=== PATIENT | female | born 1935 | race Caucasian/White ===

== ENCOUNTER 2018-12-21 17:56 | Observation (INO) | payer MEDICARE ==
[~2018-12-21] VITALS: Ht 149.9 cm; Wt 51.3 kg
--- OUTSIDE RECORDS SUMMARY | 2018-12-21 17:58 | XMS REPORT | Clinical Summary ---
Author Author SARI [facility] Address Unknown Phone Unavailable Care Team Providers Care Quality Associate Name Role Phone Aubree Parkinson MD PCP Allergies Comments Active Allergy Reactions Severity Noted Date Penicillins Rash Low 12/12/2018 Medications End Date Status Medication Sig Dispensed Refills Start Date Active acetaminophen (TYLENOL) Take 500 mg 0 500 MG tablet by mouth every 6 (six) hours as needed for Pain. Active donepezil (ARICEPT) 5 MG Take 5 mg by 0 tablet mouth nightly. Active sertraline (ZOLOFT) 50 MG Take 50 mg by 0 tablet mouth daily. Active simvastatin (ZOCOR) 20 MG Take 20 mg by 0 tablet mouth nightly. Active cranberry fruit extract by 0 (CRANBERRY EXTRACT, BULK, Miscellaneous MISC) route. Active ergocalciferol, vitamin Take by 0 D2, (VITAMIN D2 ORAL) mouth. Active b complex vitamins tablet Take 1 tablet 0 by mouth daily. 12/30/2018 Active acetaminophen-codeine Take 1 tablet 30 tablet 0 (TYLENOL #3) 300-30 mg by mouth 9 per tablet every 4 (four) hours as needed for up to 10 days. Max Daily Amount: 6 tablets Active Problems Problem Noted Date Biliary colic 12/20/2018 Encounters Care Team Description Date Type Specialty Olivia Dove MD 12/20/2018 Anesthesia Event Saman Chang MD LAPAROSCOPY,CHOLECYSTECTOMY 12/20/2018 Surgery Saman Chang MD 12/20/2018 Hospital Encounter Resource, Oqmt Preadmit Phone 12/13/2018 Hospital Pre-Admission Testing Encounter after 12/20/2017 Social History Date Tobacco Use Types Packs/Day Years Used Never Smoker Smokeless Tobacco: Never Used Alcohol Use Drinks/Week oz/Week Comments No Alcohol Habits Answer Date Recorded How often do you have a drink containing alcohol? Never 12/13/2018 How many drinks containing alcohol do you have on Not asked a typical day when you are drinking? How often do you have six or more drinks on one Not asked occasion? Sex Assigned at Date Recorded Not on file Industry Job Start Date Occupation Not on file Not on file Not on file Travel End Travel History Travel Start No recent travel history available. Last Filed Vital Signs Time Taken Vital Sign Reading 12/20/2018 10:40 AM CDT Blood Pressure 140/66 12/20/2018 10:40 AM CDT Pulse 96 12/20/2018 10:40 AM CDT Temperature 36.7 C (98 F) 12/20/2018 10:40 AM CDT Respiratory Rate 18 12/20/2018 10:40 AM CDT Oxygen Saturation 97% - Inhaled Oxygen - Concentration 12/20/2018 7:09 AM CDT Weight 50.1 kg (110 lb 6.4 oz) 12/20/2018 7:09 AM CDT Height 149.9 cm (4' 11") 12/20/2018 7:09 AM CDT Body Mass Index 22.3 Plan of Treatment Not on file Procedures Comments Procedure Name Priority Date/Time Associated Diagnosis LAPAROSCOPY,CHOLECYSTECTO 12/20/2018 Gall stones MY 7:30 AM CDT after 12/20/2017 Results Not on fileafter 12/20/2017 Insurance Payer Benefit Subscriber ID Type Phone Address Plan / Group [facility] xxxxxxxxxxx MEDICARE ADV Guarantor Name Account Relation to Date of Phone Billing Address Type Patient Nicole Palacio Personal/F Self 1935 [facility] (Home) [place] [address] Advance Directives For more information, please contact: [facility] [address] [place] [address] Date Inactivated Comments Code Status Date Activated 12/20/2018 1:21 PM Full Code 12/20/2018 6:28 AM This code status was determined by: Patient
[2018-12-21] MEDS ORDERED: SODIUM CHLORIDE 0.9% 1000ML 1,000 ML IV STA (18:05)
[2018-12-21] MEDS ORDERED: MORPHINE SULFATE 2 MG/ML SYR 1ML IV STA (18:05)
[2018-12-21] MEDS ORDERED: ONDANSETRON HCL INJ 2MG/ML 2ML 2 MG/ML VIAL IV ONE (18:15)
[2018-12-21] MEDS ORDERED: MORPHINE SULFATE INJ 4 MG/ML INJ 1ML IV ONE (18:30)
[2018-12-21 18:38] LABS: BASOPHILS % 0.1 % (0.0-1.0); HEMATOCRIT 37.1 % (34.2-44.1); HEMOGLOBIN 12.4 g/dL (12.0-16.0); LYMPHOCYTES # (AUTO) 0.5 (1.0-3.2); LYMPHOCYTES % 3.5 % (18.0-39.1); MEAN CORPUSCULAR HEMOGLOBIN 31.6 pg (28-32); MEAN CORPUSCULAR HGB CONC 33.4 g/dL (31-35); MEAN CORPUSCULAR VOLUME 94.6 fL (81-99); MONOCYTES # (AUTO) 0.8 (0.2-0.8); MONOCYTES % 5.4 % (4.4-11.3); NEUTROPHILS # (AUTO) 13.5 (2.1-6.9); NEUTROPHILS % 90.3 % (38.7-80.0); PLATELET COUNT 333 x10e3/uL (140-360); RED BLOOD COUNT 3.92 x10e6/uL (3.6-5.1); RED CELL DISTRIBUTION WIDTH 14.8 % (11.7-14.4)
[2018-12-21 18:56] LABS: ALANINE AMINOTRANSFERASE 25 IU/L (0-55); ALBUMIN 2.9 g/dL (3.5-5.0); ALBUMIN/GLOBULIN RATIO 0.7 (0.8-2.0); ALKALINE PHOSPHATASE 133 IU/L (40-150); AMYLASE 90 U/L (25-125); ANION GAP 10.8 mmol/L (8-16); BLOOD UREA NITROGEN 12 mg/dL (7-26); BUN/CREATININE RATIO 16 (6-25); CALCIUM 11.4 mg/dL (8.4-10.2); CARBON DIOXIDE 28 mmol/L (22-29); CHLORIDE 101 mmol/L (98-107); CREATINE KINASE 484 IU/L (29-168); CREATININE, SERUM 0.73 mg/dL (0.57-1.11); EST GLOMERULAR FILTRATION RATE > 60 ML/MIN (60-); GLUCOSE 121 mg/dL (74-118); LIPASE 35 U/L (8-78); SODIUM 137 mmol/L (136-145)
[2018-12-21 18:57] LABS: POTASSIUM 2.8 mmol/L (3.5-5.1)
[2018-12-21] MEDS ORDERED: KCL 20MEQ/.9 SOD CHL 1,000 ML IV ONE ×2 (19:10→19:15)
[2018-12-21] MEDS ORDERED: SIMVASTATIN20 MG PO (19:21)
[2018-12-21] MEDS ORDERED: TYLENOL WITH C1 EACH PO (19:21)
[2018-12-21] MEDS ORDERED: ARICEPT5 MG PO (19:22)
[2018-12-21] MEDS ORDERED: ZOLOFT25 MG PO (19:22)
[2018-12-21] MEDS ORDERED: BENZONATATE100 MG PO (19:23)
[2018-12-21] MEDS ORDERED: ZOFRAN4 MG PO (19:23)
[2018-12-21] MEDS ORDERED: NORCO 5-325 TA1 EACH PO (19:24)
--- NOTE | 2018-12-21 19:26 | Diagnostic Imaging Report ---
EXAMINATION: CHEST 2 VIEWS INDICATION: Shortness of breath. ^SOB ^[id number] ^1840 ^Y COMPARISON: None FINDINGS: TUBES and LINES: None. LUNGS: Chronic appearing change in the lungs. Perihilar peribronchial hazy opacity could be due to bronchitis. PLEURA: Blunting of the left costophrenic angle could be due to pleural thickening. No pleural effusion or pneumothorax. HEART AND MEDIASTINUM: Hiatal hernia The cardiomediastinal silhouette is otherwise unremarkable. BONES AND SOFT TISSUES: Age indeterminate compression deformities involving several of the lower thoracic vertebral bodies. Soft tissues are unremarkable. UPPER ABDOMEN: No free air under the diaphragm. IMPRESSION: Chronic appearing change in the lungs. Perihilar peribronchial hazy opacity could be due to bronchitis Signed by: Dr. Han Prieto M.D. on 12/21/2018 7:23 PM
--- NOTE | 2018-12-21 19:30 | NUR ---
WOUND CLEANSED WITH NS, ADAPTIC, TELFA, CONFORM, COBAN DRESSING APPLIED, TOLERATED WELL
[2018-12-21 19:36] LABS: BILIRUBIN,URINE NEGATIVE (NEGATIVE); CLARITY,URINE CLOUDY (CLEAR); COLOR,URINE YELLOW (YELLOW); KETONES,URINE NEGATIVE (NEGATIVE); LEUKOCYTE ESTERASE ,URINE NEGATIVE (NEGATIVE); NITRITE,URINE NEGATIVE (NEGATIVE); PROTEIN,URINE DIPSTICK TRACE (NEGATIVE); RBC,URINE 0-5 /HPF (0-5); URINE UROBILINOGEN 0.2 mg/dL (0.2 - 1)
[2018-12-21 19:37] LABS: AMORPHOUS SEDIMENT,URINE MANY (FEW); BACTERIA,URINE MODERATE /HPF; EPITHELIAL CELLS,URINE MODERATE /LPF; MUCUS,URINE FEW (RARE)
[2018-12-21] MEDS ORDERED: HYDRALAZINE HCL 20 MG/ML VIAL IV PRN (19:45)
[2018-12-21] MEDS ORDERED: CEFTRIAXONE SOD 1 GM/NS 50 ML 50 ML IV SCH (19:45)
[2018-12-21] MEDS ORDERED: ALBUTEROL/IPRATROPIUM 3 ML NEB NEB PRN (19:45)
[2018-12-21] MEDS ORDERED: ONDANSETRON HCL INJ 2MG/ML 2ML 2 MG/ML VIAL IV PRN (19:45)
[2018-12-21] MEDS ORDERED: POTASSIUM CHLORIDE 10MEQ/100ML 100 ML IV ONE (20:00)
--- OUTSIDE RECORDS SUMMARY | 2018-12-21 20:03 | XMS REPORT ---
Author Author [facility] Address Unknown Phone Unavailable Care Team Providers Care Traffic Clerk Name Role Phone Romeo ARREOLA Unavailable Unavailable THANIA WADDELL Unavailable Unavailable Problems This patient has no known problems. Allergies, Adverse Reactions, Alerts This patient has no known allergies or adverse reactions. Medications This patient has no known medications. Results Test Description Test Time Test Comments Text Results Atomic Results Result Comments CHEST 2 VIEWS 2018-12-21 19:21:00 [place] [address] Patient Name: LOVE MELGAR MR #: [id number] : 1935 Age/Sex: 83/F Req #: [id number] Adm Physician: Ordered by: ADAL ARREOLA MD Report #: [id number] Location: ER Room/Bed: Procedure: [id number] DX/CHEST 2 VIEWS Exam Date: 12/21/18 Exam Time: 1839 REPORT STATUS: Signed EXAMINATION: CHEST 2 VIEWS INDICATION: Shortne ss of breath. SOB 20181221 1840 Y COMPARISON: None FINDINGS: TUBES and LINES: None. LUNGS: Chronic appearing change in the lungs. Perihilar peribronchial hazy opacity could be due to bronchitis. PLEURA: Blunting of the left costophrenic angle could be due to pleural thickening. No pleural effusion or pneumothorax. HEART AND MEDIASTINUM: Hiatal hernia The cardiomediastinal silhouette is otherwise unremarkable. BONES AND SOFT TISSUES: Age indeterminate compression deformities involving several of the lower thoracic vertebral bodies. Soft tissues are unremarkable. UPPER ABDOMEN: No free air under the diaphragm. IMPRESSION: Chronic appearing change in the lungs. Perihilar peribronchial hazy opacity could be due to bronchitis Signed by: Dr. Han Prieto M.D. on 12/21/2018 7:23 PM Dictated By: HAN PRIETO MD, MD 22 Transcribed By: AMY on 12/21/181922 COPY TO: ADAL ARREOLA MD TISSUE EXAM 2018-12-21 18:28:00 Surgical Pathology Report Case: [id number] Authorizing Provider: Saman Waddell MD Collected: 12/20/2018 0816 Ord ering Location: [facility] PERI[facility] Received: 12/20/2018 1201 SERVICES Pathologist: Renetta Crabtree MD Specimen: Gallbladder GALLBLADDER, LAPAROSCOPIC CHOLECYSTECTOMY: - CHRONIC CHOLECYSTITIS WITH LYMPHOID FOLLICLES - CHOLELITHIASIS - CYSTIC DUCT MARGIN IS UNREMARKABLE - NEGATIVE FOR DYSPLASIA OR MALIGNANCY Signing Pathologist Direct Phone Line: [phone] signed by Renetta Crabtree MD on 12/21/2018 at 6:28 [id number] Gallbladder The specimen is received in formalin-filled container and labeled with the patient's information and labeled "gallbladder" consists of an intact gallbladder measuring 6 x 3 cm with the gallbladder wall thickness of 0.3 cm. The gallbladder lumen is filled with red thick bile and a single green smooth stone measuring up to 1 cm. The mucosa is acuña-red and velvety with no abnormality. Section code: A1, margin en face; A2, gallbladder wall. CG/pl Performed.
--- OUTSIDE RECORDS SUMMARY | 2018-12-21 20:03 | XMS REPORT | Clinical Summary ---
Author Author SARI [facility] Address Unknown Phone Unavailable Care Team Providers Care Mileage Clerk Name Role Phone Aubree Parkinson MD PCP [...] Event Saman Chang MD LAPAROSCOPY,CHOLECYSTECTOMY 12/20/2018 Surgery Smaan Chang MD 12/20/2018 Hospital Encounter Resource, Oqmt [...] Comments Procedure Name Priority Date/Time Associated Diagnosis TISSUE EXAM AP Routine 12/20/2018 8:16 AM CDT LAPAROSCOPY,CHOLECYSTECTO 12/20/2018 Gall stones MY 7:30 AM CDT after 12/20/2017 Results * Tissue Exam (12/20/2018 8:16 AM CDT) Case Report Surgical Pathology [facility] Report [facility] Case: [id number] Authorizing Provider:Saman Chang MD Collected: 12/20/2018 0816 Ordering Location: [facility] PERI[facility] Received: 12/20/2018 1201 SERVICES Pathologist: Renetta Cratbree MD Specimen:Gallbladder DIAGNOSIS GALLBLADDER, LAPAROSCOPIC [facility] CHOLECYSTECTOMY: [facility] - CHRONIC CHOLECYSTITIS WITH LYMPHOID FOLLICLES - CHOLELITHIASIS - CYSTIC DUCT MARGIN IS UNREMARKABLE - NEGATIVE FOR DYSPLASIA OR MALIGNANCY Signing Pathologist Direct Phone Line: [phone] CPT Code(s) 379[address] [facility] CLINICAL HISTORY Gallstones [facility] SPECIMEN SOURCE Gallbladder [facility] GROSS DESCRIPTION The specimen is received in [facility] formalin-filled container and [facility] labeled with the patient's information and labeled [...] margin en face; A2, gallbladder wall. CG/pl MICROSCOPIC DESCRIPTION Performed. [facility] Specimen Tissue - Gallbladder Performing Organization Address City/State/Zipcode Phone Number [facility] [address] [place] [address] [facility] after 12/20/2017 Insurance Payer Benefit Subscriber ID Type Phone Address Plan / Group [facility] xxxxxxxxxxx MEDICARE ADV Advance Directives For more information, please contact: [address] [address] Date Inactivated Comments Code Status Date Activated 12/20/2018 1:21 PM Full Code 12/20/2018 6:28 AM This code status was determined by: Patient
[2018-12-21] MEDS: POTASSIUM CHLORIDE 10MEQ/100ML 100 ML IV SCH ×2 (21:49→23:46)
[2018-12-21] MEDS ORDERED: POTASSIUM CHLORIDE 10MEQ/100ML 100 ML IV SCH (22:00)
[2018-12-21] MEDS ORDERED: KCL 20MEQ/.9 SOD CHL 1,000 ML IV SCH (22:00)
[2018-12-21] MEDS ORDERED: POTASSIUM CHLORIDE 10MEQ/100ML 100 ML ONE (23:05)
[2018-12-21 23:16] VITALS: BP_SYST 150; BP_SYST 152; BP_DIAS 70; BP_DIAS 71
--- NOTE | 2018-12-21 23:16 | NUR ---
Pt received from ER. Pt A&O and in no apparent distress. Pt family at bedside. Pt on tele. Pt has purewick in place. All safety measures ensured, bed alarm on, and pt call [place] near. Daughter in law to stay overnight.
[2018-12-22] VITALS (7 sets, daily range): BP systolic 109–150; BP diastolic 57–70
[2018-12-22 05:50] LABS: BASOPHILS % 0.1 % (0.0-1.0); HEMATOCRIT 31.2 % (34.2-44.1); HEMOGLOBIN 10.1 g/dL (12.0-16.0); LYMPHOCYTES # (AUTO) 0.6 (1.0-3.2); LYMPHOCYTES % 5.3 % (18.0-39.1); MEAN CORPUSCULAR HEMOGLOBIN 31.1 pg (28-32); MEAN CORPUSCULAR HGB CONC 32.4 g/dL (31-35); MONOCYTES # (AUTO) 0.8 (0.2-0.8); MONOCYTES % 7.3 % (4.4-11.3); NEUTROPHILS # (AUTO) 9.5 (2.1-6.9); NEUTROPHILS % 86.7 % (38.7-80.0); PLATELET COUNT 269 x10e3/uL (140-360); RED BLOOD COUNT 3.25 x10e6/uL (3.6-5.1)
[2018-12-22 06:02] LABS: ANION GAP 9.2 mmol/L (8-16); BLOOD UREA NITROGEN 13 mg/dL (7-26); BUN/CREATININE RATIO 22 (6-25); CALCIUM 9.9 mg/dL (8.4-10.2); CARBON DIOXIDE 25 mmol/L (22-29); CHLORIDE 109 mmol/L (98-107); EST GLOMERULAR FILTRATION RATE > 60 ML/MIN (60-); GLUCOSE 100 mg/dL (74-118); POTASSIUM 3.2 mmol/L (3.5-5.1); SODIUM 140 mmol/L (136-145)
--- NOTE | 2018-12-22 07:32 | NUR ---
report given and walking rounds complete
[2018-12-22 11:54] LABS: HYPOCHROMASIA SLIGHT; LYMPHOCYTES % (MANUAL) 5 % (19-48); METAMYELOCYTES % (MANUAL) 1 % (0-0); MONOCYTES % (MANUAL) 5 % (3.4-9.0); NEUTROPHILS % (MANUAL) 89 % (40-74); PLATELET ESTIMATE ADEQUATE
[2018-12-22 11:55] LABS: ANISOCYTOSIS SLIGHT; PLATELET MORPHOLOGY COMMENT NORMAL; POIKILOCYTOSIS SLIGHT; RBC MORPHOLOGY COMMENT NORMAL
[2018-12-22] MEDS ORDERED: ALBUTEROL/IPRATROPIUM 3 ML NEB NEB SCH (15:45)
[2018-12-22] MEDS ORDERED: POTASSIUM CHLORIDE 20 MEQ TAB CR PO ONE (16:00)
[2018-12-22] MEDS ORDERED: ONDANSETRON HCL 4 MG ORAL DISINTEGRATING TAB PO PRN (16:00)
[2018-12-22] MEDS: FAMOTIDINE 20 MG TAB PO SCH (17:22)
--- NOTE | 2018-12-22 17:24 | Diagnostic Imaging Report ---
EXAM: CT Chest WITHOUT contrast 12/22/2018 3:40 PM INDICATION: Cough. Vomiting. COPD. COMPARISON: 12/21/2018 TECHNIQUE: Chest was scanned utilizing a multidetector helical scanner from the lung apex through the level of the adrenal glands without administration of IV contrast. Absence of intravenous contrast decreases sensitivity for detection of lymphadenopathy and vascular pathology. Coronal and sagittal reformations were obtained. Routine protocol was performed. IV CONTRAST: None RADIATION DOSE: Total DLP: 366.87 mGy*cm Estimated effective dose: (DLP x 0.014 x size factor) mSv COMPLICATIONS: None FINDINGS: LINES/ TUBES: None. LUNGS AND AIRWAYS: Chronic appearing changes in the lungs with what appear to be regions of scarring/atelectasis most pronounced in the left upper lung. Scattered ill-defined nodular densities in the posterior left lower lobe best seen on axial image 45 could be due to developing pneumonia. PLEURA: Moderate sized pleural effusion with associated atelectasis at the lung bases. HEART AND MEDIASTINUM: The thyroid gland is normal. Prominent mediastinal lymph nodes could be reactive. The heart is normal in size.. There is no pericardial effusion. Scattered atherosclerotic calcification in the coronary arteries, aorta and branch vessels. Small amount of debris/saliva in the trachea. Moderate size hiatal hernia with suspected marked because of thickening in the esophagus. UPPER ABDOMEN: Limited non-contrast views of the upper abdomen show no abnormality within the visualized liver, spleen, pancreas, or kidneys. The adrenal glands are normal. BONES: Scattered degenerative changes. Age indeterminate compression deformity involving several of the lower thoracic vertebral bodies. MRI may be of benefit. SOFT TISSUES: Unremarkable. IMPRESSION: Moderate sized pleural effusion with associated atelectasis at the lung bases Scattered ill-defined nodular densities in the posterior left lower lobe could be due to developing pneumonia. Chronic appearing changes in the lungs with what appear to be regions of scarring/atelectasis most pronounced in the left upper lung. Moderate size hiatal hernia with suspected marked because of thickening in the esophagus. Endoscopy may be of benefit. Age indeterminate compression deformity involving several of the lower thoracic vertebral bodies. MRI may be of benefit. Signed by: Dr. Han Prieto M.D. on 12/22/2018 5:21 PM
[2018-12-22] MEDS: HYDROCODONE/APAP 5MG-325MG TAB PO PRN (18:14)
--- NOTE | 2018-12-22 18:56 | NUR ---
Got report from previous nurse. Call light within reach. patient in bed. No pain or distress noted. Family at bedside
[2018-12-22] MEDS: DONEPEZIL HCL 5 MG TAB PO SCH (22:00)
[2018-12-22] MEDS: SIMVASTATIN 20 MG TAB PO SCH (22:00)
[2018-12-23] VITALS (8 sets, daily range): BP systolic 132–164; BP diastolic 66–75
--- NOTE | 2018-12-23 07:13 | NUR ---
Gave report to oncoming nurse. Call light within reach. Patient in bed. Family at bedside
[2018-12-23] MEDS ORDERED: SERTRALINE HCL 25 MG PO SCH (09:00)
[2018-12-23] MEDS: HYDROCODONE/APAP 5MG-325MG TAB PO PRN ×3 (10:43→23:21)
--- NOTE | 2018-12-23 11:49 | NUR ---
Spoke to Dr. Tierney regarding pt status. She is day 2 observation. Does not meet inpatient status. He believes she has pneumonia, and state will treat w/ oral antibiotic. Stated she is too weak to leave today, and he will re-evaluate for tomorrow.
[2018-12-23] MEDS: FAMOTIDINE 20 MG TAB PO SCH ×2 (11:56→17:29)
[2018-12-23] MEDS: SERTRALINE HCL 50 MG TAB PO SCH (11:56)
[2018-12-23] MEDS: LEVOFLOXACIN 500 MG TAB PO SCH ×2 (12:00→13:14)
--- NOTE | 2018-12-23 14:15 | NUR ---
PATIENT COMPLAINING OF SEVERE NAUSEA, SHE STATED THAT THE LEVAQUIN MADE HER SICK, CALLED DR. MOLINA, LEFT MESSAGE FOR MORE NAUSEA MEDICATION.
[2018-12-23] MEDS: ALBUTEROL/IPRATROPIUM 3 ML NEB NEB SCH ×3 (15:00→22:37)
[2018-12-23] MEDS: LACTOBACILLUS ACIDOPHILUS CAPSULE PO SCH ×2 (15:00→20:54)
[2018-12-23] MEDS ORDERED: PROMETHAZINE 12.5MG/ NACL 0.9% 12.5 MG/50 ML BAG IV ONE ×2 (17:00→17:30)
[2018-12-23] MEDS ORDERED: SODIUM CHLORIDE 0.9% 250ML 250 ML ONE (17:17)
--- NOTE | 2018-12-23 18:50 | NUR ---
GOT REPORT FROM PREVIOUS NURSE. PATIENT IN BED. FAMILY AT BEDSIDE. CALL LIGHT WITHIN REACH.
[2018-12-23] MEDS: DONEPEZIL HCL 5 MG TAB PO SCH (20:53)
[2018-12-23] MEDS: SIMVASTATIN 20 MG TAB PO SCH (20:54)
--- NOTE | 2018-12-23 23:25 | NUR ---
CALLED AND TALKED TO DR. MOLINA ABOUT PATIENT WANTS SOMETHING FOR SLEEP AND CONSTIPATION. DR. MOLINA ORDERED CITRATE OF MAGNESIUM 300 CC ONCE AND RESTORIL 7.5 MG ONCE.
[2018-12-23] MEDS ORDERED: TEMAZEPAM 15 MG CAP PO ONE (23:30)
[2018-12-23] MEDS ORDERED: CITRATE OF MAGNESIA 300ML BOTTLE PO ONE (23:30)
[2018-12-24] VITALS: BP 160/70
[2018-12-24 00:31] VITALS: BP 160/70
--- NOTE | 2018-12-24 03:30 | NUR ---
Patient asleep in bed. Daughter in law at bedside. call light within reach.
[2018-12-24 04:17] VITALS: BP 163/72
--- NOTE | 2018-12-24 07:01 | NUR ---
Gave report to oncoming nurse. Patient in bed. Call light within reach.
[2018-12-24] MEDS: ALBUTEROL/IPRATROPIUM 3 ML NEB NEB SCH ×3 (07:13→14:50)
[2018-12-24 08:42] VITALS: BP 116/57
[2018-12-24] MEDS: LACTOBACILLUS ACIDOPHILUS CAPSULE PO SCH (10:11)
[2018-12-24] MEDS: FAMOTIDINE 20 MG TAB PO SCH (10:11)
[2018-12-24] MEDS: SERTRALINE HCL 50 MG TAB PO SCH (10:11)
[2018-12-24 10:25] VITALS: BP 116/57
[2018-12-24] MEDS ORDERED: DOXYCYCLINE HYCLATE TABLET 100 MG TAB PO SCH (12:00)
[2018-12-24] MEDS ORDERED: LACTULOSE SYRUP 20 GM/30 ML UDC PO ONE (12:30)
--- NOTE | 2018-12-24 12:57 | Diagnostic Imaging Report ---
Examination: Single AP view of the chest. COMPARISON: None. INDICATION: vomiting DISCUSSION: Lines/tubes: None. Lungs: Age-related interstitial change. Pleura: Small left effusion. Heart and mediastinum: The heart and the mediastinum are unremarkable. Bones and soft tissues: No acute bony abnormalities. IMPRESSION: 1. Small left effusion Signed by: Dr. Ameya Akers M.D. on 12/24/2018 12:54 PM
--- NOTE | 2018-12-24 12:58 | Diagnostic Imaging Report ---
Exam: Abdominal film Clinical History: Constipation Comparison: None. DISCUSSION: No significant dilated bowel. No significant amount of retained stool. IMPRESSION: 1. Nonobstructive bowel gas pattern. Signed by: Dr. Ameya Akers M.D. on 12/24/2018 12:55 PM
[2018-12-24 13:11] VITALS: BP 130/77
[2018-12-24] MEDS ORDERED: DOXYCYCLINE HY100 MG PO (14:57)
== END 2018-12-24 15:40 | disposition home or self-care (01) ==
LOC: ER 17:56 → ERHOLD 20:00 → IMCU 23:18
PROVIDERS: ADMIT Internal Medicine; ATTEND Internal Medicine
DX: E86.0 Dehydration (principal); J20.9 Acute bronchitis, unspecified; J44.0 Chronic obstructive pulmonary disease with (acute) lower respiratory infection; E87.6 Hypokalemia; Z98.890 Other specified postprocedural states; Z90.49 Acquired absence of other specified parts of digestive tract; E78.5 Hyperlipidemia, unspecified; Z88.0 Allergy status to penicillin; Z85.3 Personal history of malignant neoplasm of breast; R05 Cough; J90 Pleural effusion, not elsewhere classified; K59.00 Constipation, unspecified
CPT/HCPCS: 36415 ×2; 71045; 71046; 71250; 74018; 80048; 80053; 81001; 82150; 82550; 82553; 83690; 84484; 85025 ×2; 87086; 93005 ×2; 94640 ×4; 96360; 96361; 99284; G0378 ×4; J0360; J0696; J2270; J2405; J2550; J3480; J7030; J7050; Q0162

== ENCOUNTER 2019-08-12 16:07 | Observation (INO) | payer MEDICARE ==
[~2019-08-12] VITALS: Ht 149.9 cm; Wt 51.3 kg
[~2019-08-12 16:07] MED LIST: ARICEPT5 MG PO; BENZONATATE100 MG PO; DOXYCYCLINE HY100 MG PO; NORCO 5-325 TA1 EACH PO; SIMVASTATIN20 MG PO; TYLENOL WITH C1 EACH PO; ZOFRAN4 MG PO; ZOLOFT25 MG PO
[2019-08-12] MEDS ORDERED: SODIUM CHLORIDE 0.9% 1000ML 1,000 ML IV STA (16:24)
[2019-08-12] MEDS ORDERED: PANTOPRAZOLE 40 MG 10ML VIAL IV NR (16:30)
--- NOTE | 2019-08-12 17:21 | Diagnostic Imaging Report ---
Acute Abdominal Series CPT CODE: 58141 INDICATION: Upper quadrant pain. COMPARISON: Abdomen x-ray 12/24/2018, chest x-ray 12/24/2018. FINDINGS: Single view of the chest shows diffuse hyperinflation. The heart is normal in size. The aorta is tortuous with calcifications in the arch. There is a small hiatal hernia. Supine and erect views of the abdomen show unremarkable bowel gas pattern. No dilated bowel loops. Moderate to large amount of stool throughout the colon. No pneumatosis or free air. 3 calcifications in the left upper quadrant are stable. A 15 mm calcification in the midline pelvis is stable. Cholecystectomy clips in the right upper quadrant. Moderate degenerative changes of the lumbar spine superimposed on dextroscoliosis. There are degenerative changes of the hips. A calcification over the medial wall of the left acetabulum is stable. IMPRESSION: 1. Large burden of stool throughout the colon without bowel obstruction. 2. COPD. 3. Small hiatal hernia. Signed by: Dr. Binu Newman MD on 08/12/2019 5:18 PM
[2019-08-12 17:46] LABS: BASOPHILS % 0.7 % (0.0-1.0); EOSINOPHILS # (AUTO) 0.2 (0.0-0.4); EOSINOPHILS % 3.4 % (0.0-6.0); HEMATOCRIT 32.2 % (34.2-44.1); HEMOGLOBIN 9.9 g/dL (12.0-16.0); LYMPHOCYTES # (AUTO) 0.9 (1.0-3.2); LYMPHOCYTES % 15.6 % (18.0-39.1); MEAN CORPUSCULAR HEMOGLOBIN 28.7 pg (28-32); MEAN CORPUSCULAR HGB CONC 30.7 g/dL (31-35); MEAN CORPUSCULAR VOLUME 93.3 fL (81-99); MONOCYTES # (AUTO) 0.6 (0.2-0.8); MONOCYTES % 11.1 % (4.4-11.3); NEUTROPHILS # (AUTO) 3.8 (2.1-6.9); NEUTROPHILS % 68.8 % (38.7-80.0); PLATELET COUNT 255 x10e3/uL (140-360); RED BLOOD COUNT 3.45 x10e6/uL (3.6-5.1); RED CELL DISTRIBUTION WIDTH 14.9 % (11.7-14.4)
[2019-08-12 18:04] LABS: INR 0.93
[2019-08-12 18:05] LABS: PARTIAL THROMBOPLASTIN TIME 30.8 seconds (23.8-35.5)
[2019-08-12] MEDS: AZTREONAM 1 GM/NS 50 ML 50 ML IV SCH (18:07)
[2019-08-12 18:09] LABS: ALANINE AMINOTRANSFERASE 56 IU/L (0-55); ALBUMIN 3.4 g/dL (3.5-5.0); ALBUMIN/GLOBULIN RATIO 0.9 (0.8-2.0); ALKALINE PHOSPHATASE 142 IU/L (40-150); ANION GAP 15.1 mmol/L (8-16); BLOOD UREA NITROGEN 11 mg/dL (7-26); BUN/CREATININE RATIO 14 (6-25); CALCIUM 11.1 mg/dL (8.4-10.2); CARBON DIOXIDE 23 mmol/L (22-29); CHLORIDE 107 mmol/L (98-107); CREATINE KINASE 27 IU/L (29-168); CREATININE, SERUM 0.78 mg/dL (0.57-1.11); EST GLOMERULAR FILTRATION RATE > 60 ML/MIN (60-); GLUCOSE 87 mg/dL (74-118); POTASSIUM 4.1 mmol/L (3.5-5.1); SODIUM 141 mmol/L (136-145)
[2019-08-12] MEDS ORDERED: ONDANSETRON HCL INJ 2MG/ML 2ML 2 MG/ML VIAL IV PRN (18:15)
[2019-08-12] MEDS: LACTATED RINGER'S 1,000 ML IV SCH (18:15)
[2019-08-12] MEDS ORDERED: DIPHENHYDRAMINE HCL INJ 50 MG/ML VIAL IV PRN (18:15)
[2019-08-12] MEDS ORDERED: ACETAMINOPHEN 325 MG TAB PO PRN (18:15)
[2019-08-12] MEDS ORDERED: MAGNESIUM HYDROXIDE 30 ML UDC PO ONE (18:30)
[2019-08-12 20:01] LABS: BILIRUBIN,URINE NEGATIVE (NEGATIVE); CLARITY,URINE CLEAR (CLEAR); COLOR,URINE YELLOW (YELLOW); KETONES,URINE NEGATIVE (NEGATIVE); LEUKOCYTE ESTERASE ,URINE NEGATIVE (NEGATIVE); NITRITE,URINE NEGATIVE (NEGATIVE); PROTEIN,URINE DIPSTICK NEGATIVE (NEGATIVE); URINE UROBILINOGEN 0.2 mg/dL (0.2 - 1)
[2019-08-12 20:09] LABS: BACTERIA,URINE RARE /HPF; RBC,URINE 0-5 /HPF (0-5)
[2019-08-12 20:10] LABS: EPITHELIAL CELLS,URINE FEW /LPF
[2019-08-12 20:39] VITALS: BP 172/73
[2019-08-12 21:00] VITALS: BP 172/73
--- NOTE | 2019-08-12 21:00 | NUR ---
patient received to room 285 via stretcher from the emergency room. vss. no c/o pain noted at this time. admit assessment/history complete. daughter in law at the bedside. patient/daughter in law instructed to call for assistance when needed.
[2019-08-12] MEDS ORDERED: FEXOFENADI30 MG/5 ML PO (22:15)
[2019-08-12] MEDS ORDERED: PANTOPRAZOLE SO40 MG PO (22:15)
[2019-08-12] MEDS ORDERED: FLUTICASONE P15.8 ML (22:15)
[2019-08-13] VITALS (8 sets, daily range): BP systolic 135–169; BP diastolic 62–67
--- NOTE | 2019-08-13 | NUR ---
hh drawn at this time and sent to lab.
[2019-08-13 00:34] LABS: HEMATOCRIT 28.2 % (34.2-44.1); HEMOGLOBIN 8.9 g/dL (12.0-16.0)
--- NOTE | 2019-08-13 04:00 | NUR ---
patient appears to be resting quietly. no c/o pain noted throughout the night. ivf continue to infuse without difficulty. daughter in law remains at the bedside.
[2019-08-13 05:50] LABS: HEMOGLOBIN 7.2 g/dL (12.0-16.0)
[2019-08-13] MEDS ORDERED: ALBUTEROL/IPRATROPIUM 3 ML NEB NEB SCH (06:00)
[2019-08-13 06:09] LABS: ANION GAP 12.5 mmol/L (8-16); BLOOD UREA NITROGEN 7 mg/dL (7-26); BUN/CREATININE RATIO 14 (6-25); CALCIUM 8.9 mg/dL (8.4-10.2); CARBON DIOXIDE 19 mmol/L (22-29); CHLORIDE 110 mmol/L (98-107); CREATININE, SERUM 0.51 mg/dL (0.57-1.11); EST GLOMERULAR FILTRATION RATE > 60 ML/MIN (60-); GLUCOSE 73 mg/dL (74-118); POTASSIUM 3.5 mmol/L (3.5-5.1); SODIUM 138 mmol/L (136-145)
[2019-08-13] MEDS: AZTREONAM 1 GM/NS 50 ML 50 ML IV SCH (07:50)
[2019-08-13] MEDS: PANTOPRAZOLE 40 MG 10ML VIAL IV SCH (08:17)
[2019-08-13] MEDS: LACTATED RINGER'S 1,000 ML IV SCH (09:49)
[2019-08-13] MEDS: GUAIFENESIN 200 MG/10 ML UDC PO PRN ×2 (13:43→21:03)
--- NOTE | 2019-08-13 13:54 | NUR ---
pateint ambulating to restroom with assistance, c/o cough, PRN Cough medicine given.not in any distress, daughter at bed side
[2019-08-13] MEDS: OXYMETAZOLINE HCL 0.05% NAS 1 SPRAY BTL SCH ×2 (14:00→20:26)
--- NOTE | 2019-08-13 14:53 | NUR ---
patient off the unit for xray
[2019-08-13 14:54] LABS: % IRON SATURATION 30 % (15-50); IRON 106 ug/dL (50-170); TOTAL IRON BINDING CAPACITY 358 ug/dL (261-478); TRANSFERRIN 256 mg/dL (180-382)
--- NOTE | 2019-08-13 15:34 | Diagnostic Imaging Report ---
Abdominal series, 4 views Clinical indications: Pneumonia, constipation Comparison: Estimated Findings: The heart is within normal limits size. The lungs are clear. There is no focal consolidation, sizable pleural effusion, or pneumothorax. Small hiatal hernia is present. The bowel gas pattern is nonobstructive. There is no free intraperitoneal air. A moderate amount of retained fecal material is present throughout the colon. Cholecystectomy clips are seen in the right upper quadrant. There are degenerative changes of the thoracolumbar spine with dextroscoliosis. Impression: 1. No evidence of pneumonia. 2. Moderate amount of retained fecal material throughout the colon without evidence of obstruction. Signed by: Brent Oneill MD on 08/13/2019 3:31 PM
--- NOTE | 2019-08-13 16:00 | NUR ---
Notified Abd series x-ray result to Dr Tierney, order recvd to give mag citrate 300cc X1.
[2019-08-13] MEDS ORDERED: CITRATE OF MAGNESIA 300ML BOTTLE PO NR (16:30)
[2019-08-13] MEDS: LACTOBACILLUS ACIDOPHILUS CAPSULE PO SCH (17:04)
[2019-08-13] MEDS ORDERED: BISACODYL 5 MG TAB EC PO ONE (18:00)
--- NOTE | 2019-08-13 19:15 | NUR ---
patient received awake, alert, lying quietly in bed. no c/o pain noted at this time. ivf continue to infuse without difficulty. pm assessment complete. family noted at the bedside. patient/family instructed to call for assistance when needed.
[2019-08-13] MEDS ORDERED: SIMVASTATIN 20 MG TAB PO SCH (21:00)
[2019-08-13] MEDS ORDERED: DONEPEZIL HCL 5 MG TAB PO SCH (21:00)
[2019-08-14] VITALS: BP 134/83
[2019-08-14] MEDS ORDERED: MAGNESIUM/ALUMINUM/SIMETHICONE 30 ML UDC PO PRN
--- NOTE | 2019-08-14 00:02 | NUR ---
patient c/o burning to stomach. call placed to re: burning to stomach. new order for maalox 30cc po given at this time.
[2019-08-14] MEDS: GUAIFENESIN 200 MG/10 ML UDC PO PRN (02:45)
[2019-08-14 04:00] VITALS: BP 156/72
--- NOTE | 2019-08-14 04:00 | NUR ---
patient appears to be resting quietly. no further c/o stomach burning or pain noted. family remains at the bedside.
[2019-08-14 05:34] LABS: BASOPHILS % 0.8 % (0.0-1.0); EOSINOPHILS # (AUTO) 0.1 (0.0-0.4); EOSINOPHILS % 2.8 % (0.0-6.0); HEMATOCRIT 28.3 % (34.2-44.1); HEMOGLOBIN 8.9 g/dL (12.0-16.0); LYMPHOCYTES # (AUTO) 0.8 (1.0-3.2); LYMPHOCYTES % 15.2 % (18.0-39.1); MEAN CORPUSCULAR HEMOGLOBIN 29.3 pg (28-32); MEAN CORPUSCULAR HGB CONC 31.4 g/dL (31-35); MEAN CORPUSCULAR VOLUME 93.1 fL (81-99); MONOCYTES # (AUTO) 0.7 (0.2-0.8); MONOCYTES % 13.2 % (4.4-11.3); NEUTROPHILS # (AUTO) 3.4 (2.1-6.9); NEUTROPHILS % 67.4 % (38.7-80.0); PLATELET COUNT 202 x10e3/uL (140-360); RED BLOOD COUNT 3.04 x10e6/uL (3.6-5.1); RED CELL DISTRIBUTION WIDTH 14.7 % (11.7-14.4)
[2019-08-14 06:01] LABS: ANION GAP 9.2 mmol/L (8-16); BLOOD UREA NITROGEN 6 mg/dL (7-26); BUN/CREATININE RATIO 9 (6-25); CALCIUM 10.2 mg/dL (8.4-10.2); CARBON DIOXIDE 23 mmol/L (22-29); CHLORIDE 109 mmol/L (98-107); CREATININE, SERUM 0.65 mg/dL (0.57-1.11); EST GLOMERULAR FILTRATION RATE > 60 ML/MIN (60-); GLUCOSE 93 mg/dL (74-118); POTASSIUM 3.2 mmol/L (3.5-5.1); SODIUM 138 mmol/L (136-145)
[2019-08-14 07:49] VITALS: BP 160/69
[2019-08-14] MEDS: PANTOPRAZOLE 40 MG 10ML VIAL IV SCH (08:48)
[2019-08-14] MEDS: LACTOBACILLUS ACIDOPHILUS CAPSULE PO SCH (08:48)
[2019-08-14] MEDS: OXYMETAZOLINE HCL 0.05% NAS 1 SPRAY BTL SCH (08:48)
[2019-08-14 08:59] VITALS: BP 160/69
[2019-08-14] MEDS ORDERED: SERTRALINE HCL 25 MG PO SCH (09:00)
[2019-08-14] MEDS ORDERED: SERTRALINE HCL 50 MG TAB PO SCH (09:00)
[2019-08-14 11:44] VITALS: BP 151/72
[2019-08-14] MEDS ORDERED: POTASSIUM CHLORIDE 20 MEQ TAB CR PO NR ×2 (12:00→14:45)
--- NOTE | 2019-08-15 10:01 | Discharge Summary ---
PRIMARY CARE DOCTOR: Dr. Sandy Coughlin. FINAL DIAGNOSIS: Bronchitis. SECONDARY DIAGNOSES: 1. Coffee-ground emesis. 2. Dementia. 3. Severe constipation. 4. Chronic obstructive pulmonary disease due to secondhand smoking. CONSULTANTS: None. PROCEDURES/STUDIES PERFORMED: None. HISTORY: Per H and P. HOSPITAL COURSE: Her bronchitis is getting better with conservative measures. I suspect her vomiting is due to Roya-Jason tear. The patient did not vomit in the hospital. Her vomiting is likely partially due to excessive coughing and also severe constipation. With laxative, the patient has several bowel movements. The patient currently is tolerating diet. Her cough is better. Her hemoglobin is stable. Therefore, the patient was deemed stable for going home. The patient was seen and examined today. CONDITION ON DISCHARGE: Stable. DISCHARGE MEDICATIONS: Please see medication reconciliation form. I have updated her primary care doctor about this hospitalization. The patient will follow up with her in 1 week. MD JAMES Stevens/SESAR /[id number]
== END 2019-08-14 15:09 | disposition home or self-care (01) ==
LOC: ER 16:07 → ERHOLD 18:07 → MED/SURG3 19:53
PROVIDERS: ADMIT Internal Medicine; ATTEND Internal Medicine
DX: J40 Bronchitis, not specified as acute or chronic (principal); J44.9 Chronic obstructive pulmonary disease, unspecified; F03.90 Unspecified dementia, unspecified severity, without behavioral disturbance, psychotic disturbance, mood disturbance, and anxiety; Z77.22 Contact with and (suspected) exposure to environmental tobacco smoke (acute) (chronic); K92.0 Hematemesis; K59.00 Constipation, unspecified
CPT/HCPCS: 36415 ×3; 74022 ×2; 80048 ×2; 80053; 81001; 82270; 82550; 82553; 83540; 83880; 84466; 84484; 85014; 85018; 85025 ×2; 85610; 85730; 87400; 97116; 97161; 99284; C9113 ×3; G0378 ×3; J7030; J7121 ×2